=== PATIENT | female | born 1955 | race Caucasian/White ===

== ENCOUNTER 2022-02-22 13:17 | Outpatient (CLI) | payer MEDICARE, MEDICAID | END 2022-02-22 23:59 | disposition home or self-care (01) | LOC: CARD DIAG 13:17 | PROVIDERS: ATTEND Internal Medicine Cardiovascular Disease | DX: I08.1 Rheumatic disorders of both mitral and tricuspid valves (principal) | CPT/HCPCS: 93306 ==

== ENCOUNTER 2022-04-30 12:27 | Emergency (ER) | payer MEDICARE, MEDICAID ==
[~2022-04-30] VITALS: Ht 157.5 cm; Wt 59.1 kg
[2022-04-30 13:10] LABS: BASOPHILS % (AUTO) 0.4 % (0-1); EOSINOPHILS # (AUTO) 0.7 X10'3 (0-0.9); EOSINOPHILS % (AUTO) 7.9 % (0-6); HEMATOCRIT 43.2 % (35.0-45.0); HEMOGLOBIN 14.7 g/dl (12.0-16.0); LYMPHOCYTES # (AUTO) 1.9 X10'3 (1.1-4.8); LYMPHOCYTES % (AUTO) 21.8 % (21-51); MEAN CORPUSCULAR HEMOGLOBIN 30.5 PG (27.0-31.0); MEAN CORPUSCULAR VOLUME 89.7 FL (78-98); MEAN PLATELET VOLUME 6.9 FL (7.4-10.4); MONOCYTES # (AUTO) 0.6 X10'3 (0-0.9); MONOCYTES % (AUTO) 6.8 % (2-12); NEUTROPHILS # (AUTO) 5.4 X10'3 (1.8-7.7); NEUTROPHILS % (AUTO) 63.1 % (42-75); PLATELET COUNT 281 X10'3 (140-440); RED BLOOD COUNT 4.81 X10'6 (4.20-5.60); RED CELL DISTRIBUTION WIDTH 13.7 % (11.5-14.5); WHITE BLOOD COUNT 8.6 X10'3 (4.5-11.0)
[2022-04-30 13:16] LABS: ALANINE AMINOTRANSFERASE 18 U/L (12-78); ALBUMIN 3.9 G/DL (3.4-5.0); ALBUMIN/GLOBULIN RATIO 1.1 (1.1-1.5); ALKALINE PHOSPHATASE 79 IU/L (46-116); ANION GAP 7 (8-16); ASPARTATE AMINO TRANSFERASE 20 U/L (10-37); BILIRUBIN,TOTAL 0.6 MG/DL (0.1-1.0); BLOOD UREA NITROGEN 18 MG/DL (7-18); BUN/CREATININE RATIO 22.2 (6.6-38.0); CALCIUM 9.1 MG/DL (8.5-10.1); CHLORIDE 106 MMOL/L (99-107); CREATININE 0.81 MG/DL (0.40-0.90); GLUCOSE 102 MG/DL (70-104); SODIUM 141 MMOL/L (135-145); TOTAL CARBON DIOXIDE 27.7 MMOL/L (24-32); TOTAL PROTEIN 7.4 G/DL (6.4-8.2); eGFR 70 ML/MIN
[2022-04-30] MEDS ORDERED: normal saline 1000ML IV soln IVB ONE (14:35)
[2022-04-30] MEDS ORDERED: iohexol 350MG/ML 100ml bottle IV ONE (14:46)
[2022-04-30] MEDS ORDERED: dexamethasone sod phosphate 10mg/ml inj IV STA (15:12)
[2022-04-30] MEDS ORDERED: albuterol 2.5 MG/3 ML nebule CONTNEB PRN (15:15)
[2022-04-30] MEDS ORDERED: ALBU8HFA PO (16:13)
[2022-04-30 16:33] VITALS: BP 154/85
== END 2022-04-30 17:10 | disposition home or self-care (01) ==
LOC: ER 12:27
DX: J40 Bronchitis, not specified as acute or chronic (principal); Z87.891 Personal history of nicotine dependence
CPT/HCPCS: 36415; 71045; 71275; 80053; 83880; 84484; 85025; 93005; 94640; 96361; 96374; 99285; J1100; J3490; J7030; Q9967; 94760; A7015

== ENCOUNTER 2025-04-04 07:10 | Emergency (ER) | payer OTHER, MEDICAID ==
[~2025-04-04] VITALS: Ht 154.9 cm; Wt 55.5 kg
[~2025-04-04 07:10] MED LIST: ALBU8HFA PO; OLME5TAB32 PO; ROSU20TA98 PO; UMEC1DIS INH
[2025-04-04 07:11] VITALS: TEMP 98.1
--- NOTE | 2025-04-04 07:23 | ELECTROCARDIOGRAPH REPORT ---
[facility] Test Date: 2025-04-04 Test Time: 07:20:41 Pat Name: SHELBI HAILE Department: [facility] Patient ID: [facility]-[id number] Room: Gender: F New Car Salesperson: : 1955 Requested By: JESUSITA REYES Order Number: [id number] Reading MD: Dr. Nixon Mccullough Measurements Intervals [place] Rate: 81 P: 57 RI: 151 QRS: 14 QRSD: 92 T: 60 QT: 395 QTc: 459 Interpretive Statements Sinus rhythm Low voltage, precordial leads Electronically Signed On 04-04-2025 18:54:[address] Nixon Mccullough Please click the below link to view image of tracing.
--- NOTE | 2025-04-04 07:51 | RADIOLOGY REPORT ---
DI CHEST,SINGLE VIEW, HISTORY: CP COMPARISON: DI CHEST,SINGLE VIEW on DOS: 03/11/25, CHEST,SINGLE VIEW on DOS: 04/30/22 DI CHEST,SINGLE VIEW on DOS: 03/11/25, CHEST,SINGLE VIEW on DOS: 04/30/22 TECHNICAL DATA: 1 view of the chest was obtained. FINDINGS: Lines and tubes: None Cardiomediastinal silhouette: normal Pulmonary vasculature: normal Lung expansion: normal Lung airspace: normal Lung interstitium: normal Pleura: normal Pneumothorax: no Bones: Unremarkable Other: no IMPRESSION: No acute intrathoracic abnormality.
[2025-04-04 07:53] LABS: MEAN PLATELET VOLUME 6.7 FL (7.4-10.4); RED CELL DISTRIBUTION WIDTH 15.0 % (11.5-14.5)
[2025-04-04 08:07] LABS: CREATININE 0.77 MG/DL (0.40-0.90); TOTAL CARBON DIOXIDE 22.7 MMOL/L (24-32); eCRCL 50 ML/MIN; eGFR 74 ML/MIN
[2025-04-04 08:11] LABS: PRO BRAIN NATRIURETIC PEPTIDE 266 PG/ML (0-125)
[2025-04-04] MEDS: ipratropium/albuterol 3ml nebule NEB ONE (08:20)
[2025-04-04 08:21] VITALS: PULSE 75; RESP 16; O2SAT 97
[2025-04-04 08:31] VITALS: PULSE 105; RESP 20; O2SAT 98
--- NOTE | 2025-04-04 08:37 | Physician Documentation ---
History of Present Illness ~ Chief Complaint: Difficulty Breathing Stated Complaint: DIFF BREATHING Time Seen by MD: 07:22 Primary Medical Doctor: none Source: patient Mode of Arrival: POV Exam Limitations: no limitations HPI Chief Complaint: Shortness a breath Caveat: None Independent Historians: None History of Present Illness: Patient is a 70-year-old woman with COPD comes in complaining of shortness a breath with the exertion that has been getting progressively worse for a couple of months. Patient states that she has coughing spells and on occasion will cough up thick mucus. Patient states that she has been having increased mucus. Patient denies fever. Patient states that she gets extremely short of breath with any little exertion or walking. Patient saw her primary care doctor last week and also a week and a half ago. Patient had a recent admission and cardiac workup for this dyspnea on exertion. Patient denies any chest pain. Patient denies any other associated symptoms. Patient discovered that drinking salt water helps with decreasing the mucus and being able to get any mucus expelled. Patient states that she does not have a nebulizer machine at home. Review of systems: All systems were reviewed and are negative except for what is indicated in the history of present illness. Past Medical History: COPD Past Surgical History: Noncontributory Social History: Former smoker, no alcohol or drug use Medications: Reviewed as documented Nursing Notes Allergies: Reviewed as documented in Nursing Notes Medication Reconciliation Allergies: Coded Allergies: No Known Allergies (Unverified , 04/04/25) Scheduled Budesonide/Glycopyr/Formoterol (Breztri Aerosphere Inhaler), 2 PUFFS INH Q12H Ipratropium/Albuterol Sulfate (Duoneb 2.5-0.5 Mg/3 Ml Soln), 1 VIAL NEB Q12H Olmesartan Medoxomil* (Benicar*), 2 TAB PO DAILY, (Reported) Rosuvastatin Calcium (Rosuvastatin Calcium), 1 TAB PO HS, (Reported) Umeclidinium Brm/Vilanterol Tr (Anoro Ellipta 62.5-25 Mcg INH), 1 PUFFS INH DAILY Scheduled PRN Albuterol Sulfate Nebs* (Proventil Nebs*), 2 VIAL NEB Q4H PRN for SOB or wheezing albuterol inhaler (Pro-Air Inhaler), 1-2 PUFFS PO Q4H PRN for shortness of breath Past Medical History Past Medical History: Hypertension, Emphysema, Hernia Past Surgical History: noncontributory, Patient History: FH: colon cancer FATHER, Onset:68 FH: heart disease FATHER, Onset:62 (heart attack) FH: hypertension MOTHER, Onset:60 Alcohol Use: None Drug Use: none Lives In: Home Review of Systems All Other Systems at this time: Reviewed and Negative ROS Patient denies any other acute symptoms other than above. All other systems are negative Physical Exam Vital Signs: RN Vital Signs have been reviewed: Yes, Temperature: 98.1, Source: Oral, Heart Rate: 75, Respiratory Rate: 16, BP: 178/101, Pulse Oximetry: 97, Weight: 55.450 Pulse Oximetry Reflects: adequate oxygenation Physical Exam General Appearance: No distress HEENT: Normal OP, moist oral mucosa, PERRL, EOMI Neck: supple, normal ROM, trachea midline Pulmonary: No respiratory distress, CTA but breath sounds are distant, BS equal Cardiac: RRR, no murmur, rub or gallop, GI: nondistended, soft, nontender, normal bowel sounds, no guarding, no rebound Extremities: normal ROM, no swelling, non-tender Skin: intact, dry, warm, no rashes Neuro: AAOx3, speech is clear, no focal motor weakness Psych: normal affect, good eye contact, no apparent hallucination, normal speech Progress Results/Orders Results/Orders Orders - JESUSITA REYES MD Chest,Single View (04/04/25 07:15) Monitor (04/04/25 07:15) Saline Lock (04/04/25 07:15) Oxygen (04/04/25 07:15) Hs Troponin I W Calculations (04/04/25 10:15) Svn Treatment (04/04/25 08:07) Completed Orders - JESUSITA REYES MD Chest,Single View (04/04/25 07:15) Cbc/Diff (04/04/25 07:15) PBNP (04/04/25 07:15) Electrocardiogram (04/04/25 07:15) Hs Troponin I W Calculations (04/04/25 07:15) Hs Troponin I W Calculations (04/04/25 09:15) CMP (04/04/25 07:23) Ipratropium/Albuterol Nebule (Ipratrop/A (04/04/25 08:10) Medications Received in ER Medications (Trade) Dose Ordered Sig/Vicky Route PRN Reason Start Time Stop Time Status Last Admin Dose Admin (ipratrop/ albuterol 0.5-3(2.5) MG/3ml nebule) 3 ml ONCE ONCE NEB 04/04/25 08:10 04/04/25 08:11 DC 04/04/25 08:20 3 ML Vital Signs 04/04/25 04/04/25 04/04/25 04/04/25 07:11 07:46 08:21 08:31 Temp 98.1 Pulse 92 75 105 Resp 18 19 16 20 B/P (MAP) 178/101 Pulse Ox 96 97 98 O2 Delivery Room Air* Room Air* O2 Flow Rate 0 0 FiO2 21 21 04/04/25 09:13 Pulse 89 Resp 20 B/P (MAP) 122/87 (99) Pulse Ox 97 O2 Flow Rate 0 Laboratory Tests Test 04/04/25 07:41 04/04/25 08:42 White Blood Count 5.8 Red Blood Count 3.91 L Hemoglobin 11.8 L Hematocrit 34.8 L Mean Corpuscular Volume 89.1 Mean Corpuscular Hemoglobin 30.1 Mean Corpuscular Hemoglobin Concent 33.8 Red Cell Distribution Width 15.0 H Platelet Count 243 Mean Platelet Volume 6.7 L Neutrophils (%) (Auto) 44.6 Lymphocytes (%) (Auto) 27.3 Monocytes (%) (Auto) 9.3 Eosinophils (%) (Auto) 18.4 H Basophils (%) (Auto) 0.4 Neutrophils # (Auto) 2.6 Lymphocytes # (Auto) 1.6 Monocytes # (Auto) 0.5 Eosinophils # (Auto) 1.1 H Basophils # (Auto) 0.0 CBC Comment Sodium Level 140 Potassium Level 3.8 Chloride Level 110 H Carbon Dioxide Level 22.7 L Anion Gap 7 L Blood Urea Nitrogen 11 Creatinine 0.77 Estimated GFR/1.73 m2 74 BUN/Creatinine Ratio 14.3 Glucose Level 88 Calcium Level 8.8 Total Bilirubin 0.6 Aspartate Amino Transf (AST/SGOT) 21 Alanine Aminotransferase (ALT/SGPT) 21 Alkaline Phosphatase 70 Troponin I High Sensitivity 10 8 Pro-B-Type Natriuretic Peptide 266 H Total Protein 6.5 Albumin 3.6 Globulin 2.9 Albumin/Globulin Ratio 1.2 Chemistry Comments Troponin I High Sens Percent Delta 20 Troponin I Hi Sens Absolute Change -2 Medical Decision Making Findings Differential diagnosis includes but is not limited to: Bronchiectasis, COPD e xacerbation, COPD, CHF, pneumonia EKG independent interpretation: Chest x-ray, single view, indication: Independent interpretation: Laboratory data independent interpretation: CBC: CMP: Toxicology: Serology: Urinalysis: Emergency department course/medical decision-making: Consultation/communications: Departure Time of Disposition: 08:35 Disposition: HOME / SELF CARE / HOMELESS Impression: Primary Impression: COPD (chronic obstructive pulmonary disease) with emphysema Qualified Codes: J43.9 - Emphysema, unspecified Condition: Stable Discharge Instructions: Chronic Obstructive Pulmonary Disease Additional Instructions: TAKE THE ALBUTEROL NEBULIZER NEEDED UP TO EVERY 4 HOURS. IF YOU NEED IT MORE OFTEN YOU SHOULD COME TO THE ER FOR EVALUATION. YOU MAY TAKE THE DUONEB TWICE A DAY FOR 10 DAYS. BREZTRI IS NOT A RESCUE INHALER LIKE ALBUTEROL. Prescriptions Ipratropium/Albuterol Sulfate (Duoneb 2.5-0.5 Mg/3 Ml Soln) 0.5 Mg-3 Mg (2.5 Mg Base)/3 Ml Ampul.neb 1 VIAL NEB Q12H for 10 Days, #60 ML 0 Refills Prov: JESUSITA REYES MD 04/04/25 Albuterol Sulfate Nebs* (Proventil Nebs*) 2.5 Mg/0.5 Ml Vial.neb 2 VIAL NEB Q4H PRN for SOB or wheezing for 30 Days, #60 ML Prov: JESUSITA REYES MD 04/04/25 Budesonide/Glycopyr/Formoterol (Breztri Aerosphere Inhaler) 160 Mcg-9 Mcg-4.8 Mcg/Actuation Hfa.aer.ad 2 PUFFS INH Q12H for 30 Days, #10.7 GM 0 Refills Prov: JESUSITA REYES MD 04/04/25 Education Educated: Patient Educated regarding: diagnosis, treatment, need for follow up Signature Scribe Signature: No scribe Attestation: No scribe JESUSITA REYES MD Apr 04, 2025 08:37
[2025-04-04] MEDS ORDERED: BUDE10.7 INH (09:58)
[2025-04-04] MEDS ORDERED: IPRA3AMP31 NEB (09:58)
[2025-04-04] MEDS ORDERED: ALB0.5UD NEB (09:58)
[2025-04-04 12:00] VITALS: BP 104/79; PULSE 90; RESP 18; O2SAT 96
--- NOTE | 2025-04-04 13:36 | ELECTROCARDIOGRAPH REPORT ---
[facility] Test Date: 2025-04-04 Test Time: 09:34:28 Pat Name: SHELBI HAILE Department: [facility] Patient ID: [facility]-[id number] Room: Gender: F Electrical Maintenance Engineer: : 1955 Requested By: [facility] Order Number: [id number] Reading MD: Dr. Nixon Mccullough Measurements Intervals [place] Rate: 80 P: 73 VT: 115 QRS: -4 QRSD: 95 T: 34 QT: 493 QTc: 569 Interpretive Statements Sinus rhythm Borderline short VT interval Borderline T wave abnormalities Prolonged QT interval Electronically Signed On 04-04-2025 18:54:[address] Nixon Mccullough Please click the below link to view image of tracing.
[2025-04-05] MEDS ORDERED: ROSU10TA72 PO (04:35)
[2025-04-07] MEDS ORDERED: GUAI600T45 PO (07:48)
[2025-04-07] MEDS ORDERED: PRED10TA23 PO (07:48)
[2025-04-07] MEDS ORDERED: NOR5T PO (07:48)
[2025-04-07] MEDS ORDERED: FLUT1BLS16 INH (08:08)
[2025-04-07] MEDS ORDERED: AZIT500T9 PO (08:09)
[2025-04-07] MEDS ORDERED: FURO-150 PO (11:09)
[2025-04-07] MEDS ORDERED: ALBU2.5V7 INH (12:09)
== END 2025-04-04 10:12 | disposition left against medical advice (07) ==
LOC: ER 07:10
DX: J43.9 Emphysema, unspecified (principal); I10 Essential (primary) hypertension; Z87.891 Personal history of nicotine dependence
CPT/HCPCS: 36415; 71045; 80053; 83880; 84484; 85025; 93005; 94640; 94760; 99283